=== PATIENT | male | born 1940 | race Two or more races ===

== ENCOUNTER 2017-06-19 11:04 | Emergency (ER) | payer MEDICARE, OTHER ==
[~2017-06-19] VITALS: Ht 170.2 cm; Wt 95.0 kg
[~2017-06-19 11:04] MED LIST: RANI-84 PO; VERA120C3 PO; VYT1080 GT
[2017-06-19] MEDS ORDERED: ACETAMINOPHEN WITH CODEINE 300/30MG TABLET PO ONE (12:15)
[2017-06-19 17:31] VITALS: BP 161/88
== END 2017-06-19 17:50 | disposition home or self-care (01) ==
LOC: ER 11:04
DX: N40.1 Benign prostatic hyperplasia with lower urinary tract symptoms (principal); R33.8 Other retention of urine; Z88.6 Allergy status to analgesic agent; Z98.890 Other specified postprocedural states
CPT/HCPCS: 51702; 99284; A4315

== ENCOUNTER 2017-10-30 19:00 | Emergency (ER) | payer MEDICARE ==
[~2017-10-30] VITALS: Ht 170.2 cm; Wt 92.0 kg
[~2017-10-30 19:00] MED LIST changes: -RANI-84 PO; +RANI150T12 PO
[2017-10-30] MEDS ORDERED: MORPHINE SULFATE 4 MG/ML CPJ (NOT FOR IM USE) IV STA (22:16)
[2017-10-30] MEDS ORDERED: ONDANSETRON 4MG ODT PO STA (22:16)
[2017-10-30] MEDS ORDERED: CEFTRIAXONE SODIUM 1 G/VIAL IM ONE (22:45)
[2017-10-30] MEDS ORDERED: LIDOCAINE HCL 1% 20ML VIAL (Pyxis) INJ INFIL ONE (23:15)
[2017-10-31 00:09] VITALS: BP 150/91
[2017-10-31 00:23] LABS: CLARITY URINE CLOUDY (CLEAR); COLOR URINE RED (YELLOW); KETONES URINE NEGATIVE (NEGATIVE); LEUKOCYTE ESTERASE URINE 2+ (NEGATIVE); NITRITE URINE NEGATIVE (NEGATIVE); OCCULT BLOOD URINE 3+ (NEGATIVE); PROTEIN URINE 3+ (NEGATIVE); SPECIFIC GRAVITY URINE 1.013 (1.005-1.030)
== END 2017-10-31 00:11 | disposition home or self-care (01) ==
LOC: ER 19:58
DX: N40.1 Benign prostatic hyperplasia with lower urinary tract symptoms (principal); R33.8 Other retention of urine; E66.9 Obesity, unspecified; Z68.31 Body mass index [BMI] 31.0-31.9, adult; Z88.6 Allergy status to analgesic agent; Z85.46 Personal history of malignant neoplasm of prostate; Z98.890 Other specified postprocedural states
CPT/HCPCS: 51702; 81001; 96372; 96374; 99284; J0696; J2270; J3490; Q0162; A4315